=== PATIENT | male | born 1975 | race Caucasian/White ===

== ENCOUNTER 2018-06-12 09:42 | Emergency (ER) | payer OTHER, BC ==
[~2018-06-12] VITALS: Ht 177.8 cm; Wt 100.0 kg
[2018-06-12 09:50] VITALS: BP 137/58
[2018-06-12] MEDS ORDERED: TETanus/Pertussis (Acell)/Diphther VAC/PF (Tdap-Adult) 0.5ml syringe IM ONE (10:20)
[2018-06-12] MEDS ORDERED: LIDOcaine 1% w/epiNEPHrine 1:200,000 30ml vial IM ONE (10:20)
[2018-06-12] MEDS ORDERED: SULF1TAB49 PO (11:20)
[2018-06-12] MEDS ORDERED: CEPH-572 PO (11:20)
== END 2018-06-12 11:37 | disposition home or self-care (01) ==
LOC: ER 09:43
DX: L02.512 Cutaneous abscess of left hand (principal); K21.9 Gastro-esophageal reflux disease without esophagitis
CPT/HCPCS: 90471; 90715; 99283; J3490; 10060

== ENCOUNTER 2018-11-20 21:03 | Emergency (ER) | payer BC ==
[~2018-11-20] VITALS: Ht 180.3 cm; Wt 86.4 kg
[2018-11-20 21:47] LABS: BASOPHILS % (AUTO) 0.3 % (0-1); EOSINOPHILS # (AUTO) 0.3 X10'3 (0-0.9); EOSINOPHILS % (AUTO) 5.2 % (0-6); HEMATOCRIT 39.8 % (42.0-52.0); HEMOGLOBIN 13.4 g/dl (14.0-17.9); LYMPHOCYTES # (AUTO) 2.7 X10'3 (1.1-4.8); LYMPHOCYTES % (AUTO) 42.1 % (21-51); MEAN CORPUSCULAR HEMOGLOBIN 29.4 PG (27.0-31.0); MEAN CORPUSCULAR HGB CONC 33.8 g/dL (33.0-36.5); MEAN CORPUSCULAR VOLUME 87.2 FL (78-98); MONOCYTES # (AUTO) 0.6 X10'3 (0-0.9); MONOCYTES % (AUTO) 9.1 % (2-12); NEUTROPHILS # (AUTO) 2.8 X10'3 (1.8-7.7); NEUTROPHILS % (AUTO) 43.3 % (42-75); PLATELET COUNT 248 X10'3 (140-440); RED BLOOD COUNT 4.56 X10'6 (4.70-6.10); RED CELL DISTRIBUTION WIDTH 13.4 % (11.5-14.5); WHITE BLOOD COUNT 6.5 X10'3 (4.5-11.0)
[2018-11-20] MEDS ORDERED: morphine 4 MG/ML inj SYRINge IV ONE (22:15)
[2018-11-20] MEDS ORDERED: normal saline 1000ML IV soln IVB ONE (22:15)
[2018-11-20 22:35] LABS: ALANINE AMINOTRANSFERASE 39 U/L (12-78); ALBUMIN 3.8 G/DL (3.4-5.0); ALBUMIN/GLOBULIN RATIO 1.2 (1.1-1.5); ALKALINE PHOSPHATASE 58 IU/L (46-116); ANION GAP 10 (8-16); ASPARTATE AMINO TRANSFERASE 17 U/L (10-37); BILIRUBIN,TOTAL 0.2 MG/DL (0.1-1.0); BLOOD UREA NITROGEN 19 MG/DL (7-18); BUN/CREATININE RATIO 17.4 (5.4-32.0); CALCIUM 8.5 MG/DL (8.5-10.1); CHLORIDE 107 MMOL/L (99-107); CREATININE 1.09 MG/DL (0.60-1.10); GLUCOSE 113 MG/DL (70-104); LIPASE 104 U/L (73-393); POTASSIUM 3.6 MMOL/L (3.5-5.1); SODIUM 145 MMOL/L (135-145); TOTAL PROTEIN 6.9 G/DL (6.4-8.2); eGFR 75 ML/MIN
[2018-11-20 22:45] LABS: CLARITY,URINE CLEAR (Clear); COLOR,URINE YELLOW (Yellow); GLUCOSE, URINE NEGATIVE (Neg); KETONES,URINE NEGATIVE (Neg); LEUKOCYTE ESTERASE ,URINE NEGATIVE (Neg); NITRITES, URINE NEGATIVE (Neg); OCCULT BLOOD,URINE NEGATIVE (Neg); PROTEIN,URINE NEGATIVE (Neg); UROBILINOGEN,URINE 0.2 E.U/dL (0.2-1.0)
[2018-11-20 22:52] LABS: UA COLLECTION TYPE CLN CATCH MIDSTREAM
[2018-11-20] MEDS ORDERED: METR-159 PO (23:50)
[2018-11-20] MEDS ORDERED: L. R1CAP4 PO (23:50)
[2018-11-21 00:22] VITALS: BP 122/71
[2018-11-22] MEDS ORDERED: METR500T PO (10:08)
[2018-11-22] MEDS ORDERED: OMEP-50 PO (10:09)
== END 2018-11-21 00:26 | disposition home or self-care (01) ==
LOC: ER 21:03
DX: R10.9 Unspecified abdominal pain (principal); K21.9 Gastro-esophageal reflux disease without esophagitis; R11.2 Nausea with vomiting, unspecified; R19.7 Diarrhea, unspecified; Z98.890 Other specified postprocedural states
CPT/HCPCS: 36415; 74176; 80053; 81003; 83690; 85025; 85610; 96361; 96374; 99284; J2270; J7030

== ENCOUNTER 2018-12-02 05:28 | Day surgery (SDC) | payer BC ==
[2018-11-22 11:16] LABS: BASOPHILS % (AUTO) 0.2 % (0-1); EOSINOPHILS # (AUTO) 0.2 X10'3 (0-0.9); EOSINOPHILS % (AUTO) 3.8 % (0-6); LYMPHOCYTES # (AUTO) 1.5 X10'3 (1.1-4.8); LYMPHOCYTES % (AUTO) 23.9 % (21-51); MEAN CORPUSCULAR HEMOGLOBIN 29.2 PG (27.0-31.0); MEAN CORPUSCULAR HGB CONC 33.7 g/dL (33.0-36.5); MEAN CORPUSCULAR VOLUME 86.7 FL (78-98); MEAN PLATELET VOLUME 8.3 FL (7.4-10.4); MONOCYTES # (AUTO) 0.6 X10'3 (0-0.9); MONOCYTES % (AUTO) 9.1 % (2-12); NEUTROPHILS # (AUTO) 4.1 X10'3 (1.8-7.7); PRE OP HEMATOCRIT 43.3 % (42.0-52.0); PRE OP HEMOGLOBIN 14.6 g/dL (14.0-17.9); PRE OP PLATELET COUNT 258 X10'3 (140-440); PRE OP PROTIME 10.9 SECONDS (9.0-12.0); RED BLOOD COUNT 4.99 X10'6 (4.70-6.10); RED CELL DISTRIBUTION WIDTH 13.2 % (11.5-14.5)
[2018-11-22 11:19] LABS: ALBUMIN/GLOBULIN RATIO 1.2 (1.1-1.5); ALKALINE PHOSPHATASE 59 IU/L (46-116); BLOOD UREA NITROGEN 12 MG/DL (7-18); BUN/CREATININE RATIO 11.1 (5.4-32.0); CALCIUM 8.9 MG/DL (8.5-10.1); CHLORIDE 109 MMOL/L (99-107); CREATININE 1.08 MG/DL (0.60-1.10); PRE OP ALT 39 U/L (30-65); PRE OP ANION GAP 8 (8-16); PRE OP AST 19 U/L (10-37); PRE OP BILIRUB, TOTAL 0.5 MG/DL (0.0-1.0); PRE OP GLUCOSE 95 MG/DL (70-104); PRE OP POTASSIUM 4.1 MMOL/L (3.4-5.1); PRE OP SODIUM 146 MMOL/L (135-145); TOTAL CARBON DIOXIDE 29.4 MMOL/L (24-32); TOTAL PROTEIN 7.4 G/DL (6.4-8.2); eGFR 75 ML/MIN
[~2018-12-02] VITALS: Ht 180.3 cm; Wt 88.0 kg
[2018-12-02] VITALS (8 sets, daily range): BP systolic 122–137; BP diastolic 69–82
[~2018-12-02 05:28] MED LIST: L. R1CAP4 PO; OMEP-50 PO; ringers solution, lacted 1,000 ML IV SCH
[2018-12-02] MEDS ORDERED: vancomycin inj 1,500 MG in normal saline 300ml IV soln IV ONE (05:30)
[2018-12-02] MEDS ORDERED: famotidine 20mg tablet PO ONE (05:30)
[2018-12-02] MEDS ORDERED: cefazolin/dext.iso 2gm/50ml 50 ML IV ONE (05:30)
[2018-12-02] MEDS ORDERED: LIDOcaine 1% (10mg/ml) 2ml vial ONE (05:44)
[2018-12-02] MEDS ORDERED: BUPIVAcaine/PF 2.5 mg/ml (0.25%) 30ml vial ONE (06:53)
[2018-12-02] MEDS ORDERED: sevoflurane 250ml liquid IH ONE (07:21)
[2018-12-02] MEDS ORDERED: midazolam 2 mg/2 ml injection ONE (07:23)
[2018-12-02] MEDS ORDERED: fentaNYL/PF 50MCG/1 ML 2ML syringe ONE ×2 (07:23→07:39)
[2018-12-02] MEDS ORDERED: ringers solution, lacted 1,000 ML IV SCH (08:12)
[2018-12-02] MEDS ORDERED: morphine 4 MG/ML inj SYRINge IV PRN ×2 (08:15)
[2018-12-02] MEDS ORDERED: proCHLORperazine 10 MG/2 ml inj IV PRN (08:15)
[2018-12-02] MEDS ORDERED: meperidine/PF 25mg/ml syringe IV PRN ×2 (08:15)
[2018-12-02] MEDS ORDERED: ondansetron/PF 4mg/2ml inj IV PRN (08:15)
[2018-12-02] MEDS ORDERED: rocuronium 10mg/ml inj IV ONE (08:24)
[2018-12-02] MEDS ORDERED: LIDOcaine 2% (20mg/ml) 5ml vial ONE (08:24)
[2018-12-02] MEDS ORDERED: ondansetron/PF 4mg/2ml inj ONE (08:24)
[2018-12-02] MEDS ORDERED: dexamethasone sod phosphate 4mg/ml inj. ONE (08:24)
[2018-12-02] MEDS ORDERED: neostigmine methylsulfate 1 MG/ML 10ml vial ONE (08:24)
[2018-12-02] MEDS ORDERED: propofol inj 20 ML IV ONE (08:24)
[2018-12-02] MEDS ORDERED: glycopyrrolate 0.2mg/ml inj ONE (08:24)
--- NOTE | 2018-12-02 08:31 | NUR ---
Received from OR via [facility] , accompanied by Anesthesiologist DRAKE and report given by Anesthesiolgist. PATIENT WITH 20G PIV IN LEFT UE RUNNING LR AT 100. LEFT KNEE ZAID BANDAGE IS INTACT AND CLEAN AND DRY. + DP TO LEFT FOOT.10L MASK ON WITH 100% SATURATIONS. Addendum: 12/02/18 at 0857 by Drake Squires RN, RN Amended: Links added.
[2018-12-02] MEDS: meperidine/PF 25mg/ml syringe IV PRN ×2 (09:21→09:28)
--- NOTE | 2018-12-02 09:51 | NUR ---
ALL DC CRITERIA HAS BEEN MET. DISCUSSED DC INSTRUCTIONS WITH PATIENT AND . PATIENT DRESSING WITH ASSIST OF . STOOD AND PIVOTED TO WHEELCHAIR AND IV WAS TAKEN OUT WITHOUT COMPLICATION. ALL QUESTIONS ANSWERED. PRESENT TO DRESS PATIENT AND DRIVE HIM HOME. PAIN WELL CONTROLLED AND DRESSING REMAINS CDI. Addendum: 12/02/18 at 1018 by Drake Squires RN, RN Amended: Links added.
== END 2018-12-02 09:51 | disposition home or self-care (01) ==
LOC: PAS 05:28
PROVIDERS: ATTEND Orthopaedic Surgery
DX: S83.242A Other tear of medial meniscus, current injury, left knee, initial encounter (principal); X58.XXXA Exposure to other specified factors, initial encounter; Y93.89 Activity, other specified; Y92.89 Other specified places as the place of occurrence of the external cause; Y99.8 Other external cause status; M67.52 Plica syndrome, left knee; Z87.891 Personal history of nicotine dependence; Z72.89 Other problems related to lifestyle; Z79.899 Other long term (current) drug therapy; Z98.890 Other specified postprocedural states; Z79.01 Long term (current) use of anticoagulants
CPT/HCPCS: 29881; 36415; 80053; 82948; 85025; 85610; 85730; 93005; J1100; J2001; J2175; J2250; J2405; J2704; J2710; J3010; J3370; J3490; J7120; A4215; A4618; A6449; A7000